=== PATIENT | female | born 1990 | race Caucasian/White ===

== ENCOUNTER 2016-08-07 14:21 | Emergency (ER) | payer BC ==
[~2016-08-07] VITALS: Ht 180.3 cm; Wt 90.7 kg
[2016-08-07] MEDS ORDERED: ONDANSETRON PF 4 MG/2 ML VIAL. IV ONE (15:30)
[2016-08-07] MEDS ORDERED: IV NORMAL SALINE 1000ML BAG 1,000 ML IV SCH (15:30)
[2016-08-07] MEDS ORDERED: FAMOTIDINE 20 MG/2 ML VIAL IVP ONE (15:30)
[2016-08-07] MEDS ORDERED: FENTANYL PF 100 MCG/2 ML VIAL. IV PRN (15:30)
[2016-08-07 16:21] LABS: BASO # 0.1 x10^3/uL (0.0-0.2); BASO % 1 % (0-3); EOS % 2 % (0-3); HEMATOCRIT 41.8 % (36.0-47.0); HEMOGLOBIN 13.7 g/dL (12.0-15.5); LYMPH # 3.2 x10^3/uL (1.0-4.8); LYMPH % 27 % (24-48); MEAN CORPUSCULAR HEMOGLOBIN 28 pg (25-35); MEAN CORPUSCULAR HGB CONC 33 g/dL (31-37); MEAN CORPUSCULAR VOLUME 85 fL (79-100); MONO % 7 % (0-9); NEUT % 63 % (31-73); PLATELET COUNT 310 x10^3/uL (140-400); RED BLOOD COUNT 4.94 x10^6/uL (3.50-5.40); RED CELL DISTRIBUTION WIDTH 13.5 % (11.5-14.5); WHITE BLOOD COUNT 11.9 x10^3/uL (4.0-11.0)
[2016-08-07 16:27] LABS: BILIRUBIN,URINE NEGATIVE (NEG); GLUCOSE,URINE NEGATIVE (NEG); NITRITE,URINE NEGATIVE (NEG); PH,URINE 7.5; PROTEIN,URINE NEGATIVE (NEG-TRACE); UROBILINOGEN,URINE 0.2 mg/dL (0.2 mg/dL)
[2016-08-07 16:37] LABS: CALCIUM 9.3 mg/dL (8.5-10.1); CREATININE 0.6 mg/dL (0.6-1.0); GFR 119.9; POTASSIUM 3.9 mmol/L (3.5-5.1)
[2016-08-07 16:40] LABS: BACTERIA,URINE MODERATE /HPF (0-FEW); RBC,URINE 0 /HPF (0-2); SQUAMOUS EPITHELIAL CELL,UR MOD /LPF
[2016-08-07 16:43] LABS: ALBUMIN 3.8 g/dL (3.4-5.0); ALBUMIN/GLOBULIN RATIO 1.2 (1.0-1.7); TOTAL BILIRUBIN 0.2 mg/dL (0.2-1.0); TOTAL PROTEIN 7.1 g/dL (6.4-8.2)
--- NOTE | 2016-08-07 17:28 | RAD ---
Right upper quadrant abdominal ultrasound, 08/07/2016: History: Epigastric pain The gallbladder is within normal limits in size. There is no sonographic evidence of cholelithiasis. The gallbladder montanez are not thickened. No bile duct dilatation is seen. The liver is at the upper limits of normal in size measuring 18 cm in craniocaudad extent at the level of the right lobe. No hepatic mass is seen. The visualized portions of the pancreas and right kidney are unremarkable. IMPRESSION: 1. No gallbladder abnormality is detected. 2. Borderline hepatomegaly.
[2016-08-07] MEDS ORDERED: PANT40TA3 PO (17:39)
--- NOTE | 2016-08-07 17:40 | PHYS DOC ---
Past Medical History Past Medical History: No Pertinent History Past Surgical History: No Surgical History Alcohol Use: Rarely Drug Use: Marijuana Adult General Chief Complaint Chief Complaint: ABDOMINAL PAIN HPI HPI Patient is a 25 year old female who presents with complaint of abdominal pain. Patient states that she has had intermittent symptoms for the past 4 days. Patient states that she has worsening pain at nighttime that wakes her up in the middle of sleep. Patient states that her pain is usually in 9 out of 10 in the middle the night. Patient states that her pain decreases to 5 out of 10 during the daytime. Patient denies previous history of similar symptoms. Patient denies any significant past medical or surgical history. Patient has not taken any medications to help with symptoms at this time. Patient denies any known exacerbating factors for her pain other than that it worsens at nighttime. Review of Systems Review of Systems Constitutional: Denies fever or chills [] Eyes: Denies change in visual acuity, redness, or eye pain [] HENT: Denies nasal congestion or sore throat [] Respiratory: Denies cough or shortness of breath [] Cardiovascular: Denies chest pain or edema [] GI: Abdominal pain, denies nausea, vomiting, bloody stools or diarrhea [] : Denies dysuria or hematuria [] Musculoskeletal: Denies back pain or joint pain [] Integument: Denies rash or skin lesions [] Neurologic: Denies headache, focal weakness or sensory changes [] Current Medications Current Medications Current Medications Medications (Trade) Dose Ordered Sig/Aury Start Time Stop Time Status Last Admin Dose Admin Famotidine (Pepcid) 20 mg 1X ONCE 08/07/16 15:30 08/07/16 15:31 DC 08/07/16 16:22 20 MG Fentanyl Citrate 50 mcg 50 mcg PRN Q15MIN PRN 08/07/16 15:30 08/08/16 15:29 08/07/16 16:22 50 MCG Ondansetron HCl (Zofran) 4 mg 1X ONCE 08/07/16 15:30 08/07/16 15:31 DC 08/07/16 16:22 4 MG Sodium Chloride (Iv Sodium Chloride 0.9% 1000ml Bag) 1,000 ml @ 1,000 mls/hr Q1H 08/07/16 15:30 08/07/16 16:29 DC 08/07/16 16:22 1,000 MLS/HR Allergies Allergies Allergies Coded Allergies Type Severity Reaction Last Updated Verified cephalexin Allergy Intermediate rash 08/07/16 Yes Physical Exam Physical Exam Constitutional: Alert, afebrile, no acute distress. [] HENT: Normocephalic, atraumatic, bilateral external ears normal, oropharynx moist, no oral exudates, nose normal. [] Eyes: PERRLA, EOMI, conjunctiva normal, no discharge. [] Neck: Normal range of motion, no tenderness, supple, no stridor. [] Cardiovascular:Heart rate regular rhythm, no murmur [] Lungs & Thorax: Bilateral breath sounds clear to auscultation [] Abdomen: Bowel sounds normal, soft, no tenderness, no masses, no pulsatile masses. [] Skin: Warm, dry, no erythema, no rash. [] Back: No tenderness, no CVA tenderness. [] Extremities: No tenderness, no cyanosis, no clubbing, ROM intact, no edema. [] Neurologic: Alert and oriented X 3, normal motor function, normal sensory function, no focal deficits noted. [] Current Patient Data Vital Signs Vital Signs Date Time Temp Pulse Resp B/P Pulse Ox O2 Delivery O2 Flow Rate FiO2 08/07/16 14:23 98.1 92 16 113/80 99 Room Air 98.1 Lab Values Laboratory Tests Test 08/07/16 15:14 08/07/16 15:20 08/07/16 16:10 POC Urine HCG, Qualitative Hcg negative (Negative) Urine Collection Type Unknown Urine Color Yellow Urine Clarity Clear Urine pH 7.5 Urine Specific [place] 1.015 Urine Protein Negativemg/dL (NEG-TRACE) Urine Glucose (UA) Negativemg/dL (NEG) Urine Ketones (Stick) Negativemg/dL (NEG) Urine Blood Negative (NEG) Urine Nitrite Negative (NEG) Urine Bilirubin Negative (NEG) Urine Urobilinogen Dipstick 0.2mg/dL (0.2 mg/dL) Urine Leukocyte Esterase Trace (NEG) Urine RBC 0/HPF (0-2) Urine WBC 1-4/HPF (0-4) Urine Squamous Epithelial Cells Mod/LPF Urine Bacteria Moderate/HPF (0-FEW) Urine Mucus Marked/LPF White Blood Count 11.9x10^3/uL (4.0-11.0) H Red Blood Count 4.94x10^6/uL (3.50-5.40) Hemoglobin 13.7g/dL (12.0-15.5) Hematocrit 41.8% (36.0-47.0) Mean Corpuscular Volume 85fL (79-100) Mean Corpuscular Hemoglobin 28pg (25-35) Mean Corpuscular Hemoglobin Concent 33g/dL (31-37) Red Cell Distribution Width 13.5% (11.5-14.5) Platelet Count 310x10^3/uL (140-400) Neutrophils (%) (Auto) 63% (31-73) Lymphocytes (%) (Auto) 27% (24-48) Monocytes (%) (Auto) 7% (0-9) Eosinophils (%) (Auto) 2% (0-3) Basophils (%) (Auto) 1% (0-3) Neutrophils # (Auto) 7.5x10^3uL (1.8-7.7) Lymphocytes # (Auto) 3.2x10^3/uL (1.0-4.8) Monocytes # (Auto) 0.8x10^3/uL (0.0-1.1) Eosinophils # (Auto) 0.3x10^3/uL (0.0-0.7) Basophils # (Auto) 0.1x10^3/uL (0.0-0.2) Sodium Level 142mmol/L (136-145) Potassium Level 3.9mmol/L (3.5-5.1) Chloride Level 107mmol/L (98-107) Carbon Dioxide Level 29mmol/L (21-32) Anion Gap 6 (6-14) Blood Urea Nitrogen 10mg/dL (7-20) Creatinine 0.6mg/dL (0.6-1.0) Estimated GFR (Cockcroft-Gault) 119.9 BUN/Creatinine Ratio 17 (6-20) Glucose Level 92mg/dL (70-99) Calcium Level 9.3mg/dL (8.5-10.1) Total Bilirubin 0.2mg/dL (0.2-1.0) Aspartate Amino Transferase (AST) 9U/L (15-37) L Alanine Aminotransferase (ALT) 20U/L (14-59) Alkaline Phosphatase 40U/L (46-116) L Total Protein 7.1g/dL (6.4-8.2) Albumin 3.8g/dL (3.4-5.0) Albumin/Globulin Ratio 1.2 (1.0-1.7) Lipase 82U/L (73-393) Laboratory Tests 08/07/16 16:10 Laboratory Tests 08/07/16 16:10 EKG EKG Not performed [] Radiology/Procedures Radiology/Procedures [facility] [address] [place] [address] IMAGING REPORT Signed PATIENT: KEIKO SEVILLA ACCOUNT: [id number] : 1990 LOCATION: ER AGE: 25 SEX: F EXAM STATUS: REG ER ORD. PHYSICIAN: ARPITA GUTIERREZ MD REASON: intermittent epigastric pain, evaluate for cholelithiasis PROCEDURE: ABDOMEN LTD Right upper quadrant abdominal ultrasound, 08/07/2016: History: Epigastric pain The gallbladder is within normal limits in size. There is no sonographic evidence of cholelithiasis. The gallbladder montanez are not thickened. No bile duct dilatation is seen. The liver is at the upper limits of normal in size measuring 18 cm in craniocaudad extent at the level of the right lobe. No hepatic mass is seen. The visualized portions of the pancreas and right kidney are unremarkable. IMPRESSION: 1. No gallbladder abnormality is detected. 2. Borderline hepatomegaly. DICTATED and SIGNED BY: BIENVENIDO MURPHY MD DATE: 08/07/16 5209 CC: ARPITA GUTIERREZ MD; NO PCP ~ [] Course & Med Decision Making Course & Med Decision Making Pertinent Labs and Imaging studies reviewed. (See chart for details) The patient's imaging studies were negative for cholelithiasis. The patient was treated with IV fluids, fentanyl, Zofran, and Pepcid. The patient symptoms have improved at this time. The patient will be referred to Dr. Ventura of gastroenterology for follow-up in one to 2 weeks as patient has persistent epigastric pain symptoms which could be result of either gastritis or possible peptic ulcer disease. Patient started on oral Protonix. Advised use of Tylenol as needed for pain as well as modification of patient's diet to decrease that intake and to decrease portion size to help with symptoms. Advised return to emergency department for any worsening symptoms. Patient voiced understanding and in agreement with treatment plan. Dragon Disclaimer Dragon Disclaimer This electronic medical record was generated, in whole or in part, using a voice recognition dictation system. Departure Departure Impression: Primary Impression: Epigastric abdominal pain Disposition: HOME, SELF-CARE Condition: IMPROVED Referrals: NO PCP (PCP) HEIDI VENTURA MD Patient Instructions: Abdominal Pain (Nonspecific) Additional Instructions: Follow-up with Dr. Ventura in one to 2 weeks. Return to the emergency department for any worsening symptoms. Scripts Pantoprazole Sodium (Protonix)40 Mg Tablet.dr1 Tab PO DAILY #30 TAB Ref 0 Prov:ARPITA GUTIERREZ MD 08/07/16 ARPITA GUTIERREZ MD Aug 07, 2016 17:40
[2016-08-07 18:05] VITALS: BP 110/67
== END 2016-08-07 18:06 | disposition home or self-care (01) ==
LOC: ER 14:21
DX: R10.13 Epigastric pain (principal); F12.10 Cannabis abuse, uncomplicated; Z88.1 Allergy status to other antibiotic agents
CPT/HCPCS: 36415; 76705; 80053; 81001; 81025; 83690; 85027; 87086; 96361; 96374; 96375; 99285; J2405; J3010; J7030; S0028

== ENCOUNTER → 2016-09-03 | Day surgery (SDC) | payer BC ==
[~2016-09-03] MED LIST: IV RINGERS,LACTATED 1000ML 1,000 ML IV SCH; LIDOCAINE 1% 1 ML SYRINGE. ID PRN; LIDOCAINE 2% PF Vial for OR 5 ML VIAL. ONE; PANT40TA3 PO; PROPOFOL 20 ML IV ONE
[2016-09-03 08:17] LABS: NEG OBC UR NEG; POS OBC UR POS
[2016-09-03 10:02] VITALS: BP 108/72
--- NOTE | 2016-09-05 17:35 | PATHOLOGY ---
PATHOLOGY REPORT * * * * * * * * FINAL DIAGNOSIS: Gastric biopsy: - Chronic gastritis, mild. COMMENT: Sections of the gastric biopsy reveal segments of gastric antral/body transition mucosa and gastric body mucosa showing congestion and mild chronic inflammation. There is a lymphoid aggregate present within the base of the mucosa of one of the biopsy segments. An immunoperoxidase stain for Helicobacter is obtained. No Helicobacter organisms are identified. There is no evidence of malignancy. Special stain performed: Immunoperoxidase for Helicobacter. REPORT ELECTRONICALLY SIGNED BY: Taran Sosa M.D. DATE/TIME: 09/05/2016 17:33 * * * * * * * * GROSS PATHOLOGY: Received in formalin labeled "Shlomo Dias, gastric biopsy," are 4 segments of morales soft tissue measuring 0.5 cm in aggregate dimensions and ranging from 0.1 to 0.2 cm in maximum dimension. The specimen is submitted entirely in cassette A1. (SNA; 09/04/2016) INITIAL CPT CODE(S): A; 90546, 37243 Professional services performed [place] [address] Technical services performed by [facility] at [address] [place] [address]. SPECIMEN(S) RECEIVED: A.Gastric biopsy CLINICAL HISTORY: Epigastric pain; ulcer, r/o H. Pylori PATIENT: SHLOMO DIAS /AGE: 7 1990 (Age: 25) PATIENT #: [id number] CASE #: SPECIMEN COLLECTION DATE: 09/03/2016 SPECIMEN RECEIVED DATE: 09/03/2016 [facility] - [address] [place] [address] - PHONE: [phone] * * * END OF REPORT * * *
== END | disposition home or self-care (01) ==
LOC: ENDOS 07:48
PROVIDERS: ATTEND Internal Medicine Gastroenterology
DX: K26.9 Duodenal ulcer, unspecified as acute or chronic, without hemorrhage or perforation (principal); K29.50 Unspecified chronic gastritis without bleeding; K21.9 Gastro-esophageal reflux disease without esophagitis; Z87.891 Personal history of nicotine dependence; Z72.0 Tobacco use
CPT/HCPCS: 43239; 81025; J2704; 88305; 88342; G0641

== ENCOUNTER → 2020-05-14 | Outpatient (CLI) | payer OTHER ==
[2016-09-03 10:02] VITALS: BP 108/72
[~2020-05-14] MED LIST changes: +FLUO10TA PO; -IV RINGERS,LACTATED 1000ML 1,000 ML IV SCH; -LIDOCAINE 1% 1 ML SYRINGE. ID PRN; -LIDOCAINE 2% PF Vial for OR 5 ML VIAL. ONE; +OXYC-325 PO; -PANT40TA3 PO; +PANT40TA77 PO; -PROPOFOL 20 ML IV ONE
== END ==
LOC: LAB 14:05
PROVIDERS: ATTEND Obstetrics & Gynecology
DX: Z01.812 Encounter for preprocedural laboratory examination (principal); N87.9 Dysplasia of cervix uteri, unspecified; Z20.828 Contact with and (suspected) exposure to other viral communicable diseases
CPT/HCPCS: U0003

== ENCOUNTER 2020-05-17 06:59 | Day surgery (SDC) | payer OTHER ==
[~2020-05-17 06:59] MED LIST changes: +CLINDAMYCIN 900MG PREMIX 50 ML IV PRN; -FLUO10TA PO; -OXYC-325 PO
[2020-05-17] MEDS ORDERED: IV RINGERS,LACTATED 1000ML 1,000 ML IV SCH (07:00)
[2020-05-17] MEDS ORDERED: MORPHINE SULFATE 2 MG/ML VIAL. IV PRN (07:00)
[2020-05-17] MEDS ORDERED: fentaNYL PF VIAL 100 MCG/2 ML VIAL IV PRN ×2 (07:00)
[2020-05-17] MEDS ORDERED: LIDOCAINE 1% PF 2 ML VIAL. ID PRN (07:00)
[2020-05-17] MEDS ORDERED: PROCHLORPERAZINE 10 MG/2 ML VIAL. IV PRN (07:00)
[2020-05-17] MEDS ORDERED: HYDROmorphone 2 MG/ML VIAL IV PRN (07:00)
[2020-05-17] MEDS ORDERED: ONDANSETRON PF 4 MG/2 ML VIAL. IV PRN (07:00)
[2020-05-17] MEDS ORDERED: FERRIC SUBSULFATE 8 ML SOL.W.APPL TP ONE (07:22)
[2020-05-17] MEDS ORDERED: FLUO10TA PO (07:30)
[2020-05-17] MEDS ORDERED: MIDAZOLAM HCL/PF 2 MG/2 ML VIAL. ONE (07:58)
[2020-05-17] MEDS ORDERED: fentaNYL PF VIAL 100 MCG/2 ML VIAL ONE (07:58)
[2020-05-17] MEDS ORDERED: KETOROLAC 30 MG/ML VIAL. ONE (08:00)
[2020-05-17] MEDS ORDERED: ONDANSETRON PF 4 MG/2 ML VIAL. ONE (08:00)
[2020-05-17] MEDS ORDERED: PROPOFOL 10 MG/ML (20ML) VIAL. IV ONE (08:00)
[2020-05-17] MEDS ORDERED: LIDOCAINE 2% PF 5 ML VIAL. ONE (08:00)
[2020-05-17] MEDS ORDERED: DEXAMETHASONE SOD PHOS 4 MG/ML VIAL ONE (08:00)
[2020-05-17] MEDS ORDERED: LIDOCAINE 2%/EPI 1:100,000 20 ML VIAL. ONE (08:18)
[2020-05-17] MEDS ORDERED: LIDOCAINE 2%/EPI 1:100,000 20 ML VIAL. IJ ONE (08:30)
--- NOTE | 2020-05-17 08:52 | PDOC ---
BRIEF OPERATIVE NOTE Date: May 17, 2020 Pre-Op Diagnosis Cervical dysplasia Post-Op Diagnosis Same Procedure Performed Cervical Cone Biopsy Surgeon Dr. Jaimes Anesthesia Type: General Blood Loss 10 ml Specimens Obtained cervical cone biopsy Findings cervical dysplasia Complications none Operative Note see dictation KATIUSKA JAIMES Jr, MD May 17, 2020 08:52
--- NOTE | 2020-05-17 08:54 | DISCH ---
DISCHARGE INSTRUCTIONS Condition on Discharge Condition on Discharge: Stable Activity After Discharge Activity Instructions for Disc: No restrictions Lifting Instructions after Dis: No heavy lifting Driving Instructions after Dis: Do not drive today Diet after Discharge Diet after Discharge: Regular Contacting the DRCarlota after DC Call your doctor for: Concerns you may have Follow-Up Follow up with: Dr. Jaimes in 2 weeks. Pelvic rest x 4 weeks KATIUSKA JAIMES Jr, MD May 17, 2020 08:54
--- NOTE | 2020-05-17 09:11 | OP ---
DATE OF SURGERY: 05/17/2020 PREOPERATIVE DIAGNOSIS: Cervical dysplasia. POSTOPERATIVE DIAGNOSIS: Cervical dysplasia. PROCEDURE: Cervical cone biopsy. SURGEON: Katiuska Jaimes MD ANESTHESIA: GETA. ESTIMATED BLOOD LOSS: 10 mL. COMPLICATIONS: None. FINDINGS: Cervical dysplasia. SUMMARY: A 29-year-old 2, para 2 with MI 1 required cervical cone biopsy. The patient was counseled on risks, benefits and expectations and voiced clear understanding to proceed. DESCRIPTION OF PROCEDURE: The patient was taken to surgery suite and placed in dorsal lithotomy position, was prepped with Betadine solution and draped in sterile fashion. After adequate anesthesia, weighted speculum and ____ were placed vaginally. Anterior lip of the cervix grasped with single tooth tenaculum. Cervix had 2-0 Vicryl stay sutures placed at the 3 o'clock and 9 o'clock position. A 2% lidocaine with epinephrine was injected in a circumferential manner. Cold knife cone biopsy was performed with the angled scapula removing anterior and posterior lip of the cervix. The remaining cervix was cauterized with Bovie cautery and Monsel solution was also placed for hemostasis purposes. The IUD strings were visualized and were not shortened. IUD was then placed. The patient tolerated the procedure well and was taken to recovery room in stable condition. Sponge and needle count correct x 3. KATIUSKA JAIMES MD DR: MARICARMEN/margie JOB#: [id number] / [id number]
[2020-05-17] MEDS ORDERED: OXYC-325 PO (09:19)
[2020-05-17 09:39] VITALS: BP 100/57
== END 2020-05-17 10:04 | disposition home or self-care (01) ==
LOC: SURG 06:59
PROVIDERS: ATTEND Obstetrics & Gynecology
DX: N87.9 Dysplasia of cervix uteri, unspecified (principal); K21.9 Gastro-esophageal reflux disease without esophagitis; E66.9 Obesity, unspecified; F17.210 Nicotine dependence, cigarettes, uncomplicated; Z79.899 Other long term (current) drug therapy; Z98.890 Other specified postprocedural states; Z88.1 Allergy status to other antibiotic agents
CPT/HCPCS: 57520; 81025; J1100; J1885; J2250; J2405; J2704; J3010; J3490